=== PATIENT | male | born 1985 | race Caucasian/White ===

== ENCOUNTER → 2017-08-13 | Outpatient (CLI) | payer MEDICAID, SELFPAY | LOC: M ADAMS 13:49 | DX: M25.552 Pain in left hip (principal); M51.36 Other intervertebral disc degeneration, lumbar region | CPT/HCPCS: 72100 ==

== ENCOUNTER → 2017-08-26 | Outpatient (CLI) | payer SELFPAY | LOC: M RAD 16:51 | DX: M51.36 Other intervertebral disc degeneration, lumbar region (principal); M51.37 Other intervertebral disc degeneration, lumbosacral region; M51.26 Other intervertebral disc displacement, lumbar region | CPT/HCPCS: 72148 ==

== ENCOUNTER 2017-09-02 14:20 | Day surgery (SDC) | payer MEDICAID, SELFPAY ==
[2017-09-02] MEDS: LR 1,000 ML IV ×4 (14:42→19:15)
[2017-09-02] MEDS ORDERED: PROPOFOL 200 MG/20 ML VIAL As Ordered ×2 (15:40)
[2017-09-02] MEDS ORDERED: LIDOCAINE 2% INJ 100 MG/5 ML SDV (FOR ANES.) As Ordered ×2 (15:40)
[2017-09-02] MEDS ORDERED: ROCURONIUM BROMIDE 50 MG/5 ML VIAL As Ordered ×2 (15:40)
[2017-09-02] MEDS ORDERED: fentaNYL 250 MCG/5 ML INJECTION (J3010) As Ordered ×2 (15:40)
[2017-09-02] MEDS ORDERED: MIDAZOLAM INJ 2 MG/2 ML VIAL (J2250) As Ordered ×2 (15:41)
[2017-09-02] MEDS: BUPIVACAINE HCL 0.25% 10 ML VIAL As Ordered ×2 (16:04)
[2017-09-02] MEDS: BUPIVACAINE LIPOSOME/PF 1.3% 20 ML VIAL (13.3MG/ML)(EXPAREL) As Ordered ×2 (16:05)
[2017-09-02] MEDS ORDERED: PERCOCET 5MG/325MG TAB As Ordered ×2 (16:12)
[2017-09-02] MEDS ORDERED: ceFAZolin 2 GM/D5W 50 ML IV BAG (J0690 PER 500MG) As Ordered ×2 (16:25)
[2017-09-02] MEDS: PERCOCET 5MG/325MG TAB PO ×4 (16:30→22:51)
[2017-09-02] MEDS: CelecoXIB 400 MG CAP PO ×2 (16:35)
[2017-09-02] MEDS: LIDOCAINE W/EPINEPHRINE 1% 20ML VIAL As Ordered ×2 (17:04)
[2017-09-02] MEDS ORDERED: NEOSTIGMINE 10 MG/10 ML VIAL (J2710) As Ordered ×2 (17:50)
[2017-09-02] MEDS ORDERED: KETOROLAC 60 MG/2 ML VIAL (J1885) As Ordered ×2 (17:50)
[2017-09-02] MEDS ORDERED: ONDANSETRON 4MG/2ML VIAL (J2405) As Ordered ×2 (17:50)
[2017-09-02] MEDS ORDERED: dexameTHASONE 4 MG/ML 1ML VIAL (J1100) As Ordered ×2 (17:50)
[2017-09-02] MEDS ORDERED: GLYCOPYRROLATE INJ 0.2 MG/ML 2 ML VIAL As Ordered ×2 (17:51)
[2017-09-02] MEDS ORDERED: METOCLOPRAMIDE INJ 10MG/2ML VIAL (J2765) As Ordered ×2 (17:52)
[2017-09-02] MEDS ORDERED: HYDROmorphone HCL 2 MG/ML 1ML VIAL (J1170) As Ordered ×2 (17:55)
[2017-09-02] MEDS: THROMBIN SOLN 20,000 UNITS KIT As Ordered ×2 (18:29)
[2017-09-02] MEDS: BACITRACIN PWD 50,000 UNITS VIAL As Ordered ×2 (18:31)
[2017-09-02] MEDS ORDERED: fentaNYL 100 MCG/2 ML INJECTION (J3010) As Ordered ×2 (18:31)
[2017-09-02] MEDS ORDERED: fentaNYL 100 MCG/2 ML INJECTION (J3010) IV ×2 (19:15)
[2017-09-02] MEDS ORDERED: ONDANSETRON 4MG/2ML VIAL (J2405) IV ×2 (19:15)
[2017-09-02] MEDS ORDERED: HYDROmorphone HCL 1 MG/ML SYRINGE (J1170) IV ×4 (19:30)
[2017-09-02] MEDS ORDERED: D5W/LR 1,000 ML IV ×2 (19:30)
[2017-09-02] MEDS ORDERED: PROMETHAZINE INJ 25 MG/ML VIAL (J2550) IV ×2 (19:30)
[2017-09-03] MEDS: CelecoXIB (CeleBREX) 100 MG CAP PO ×2 (08:09)
[2017-09-03] MEDS: PERCOCET 5MG/325MG TAB PO ×2 (08:09)
== END 2017-09-03 10:20 | disposition home or self-care (01) ==
LOC: M SDC 09-03 10:20 → M MS5PR 20:00
DX: M51.17 Intervertebral disc disorders with radiculopathy, lumbosacral region (principal); M54.5 Low back pain; Z79.899 Other long term (current) drug therapy; Z72.0 Tobacco use
CPT/HCPCS: 63030

== ENCOUNTER 2023-05-08 13:54 | Emergency (ER) | payer BC, MEDICAID ==
[~2023-05-08] VITALS: Ht 182.9 cm; Wt 114.9 kg
[~2023-05-08 13:54] MED LIST: GABA-282 PO; HYDR-3713 PO; MELO15TA28 PO; METH4TAB8 PO
[2023-05-08] MEDS ORDERED: ONDANSETRON 4MG 2ML VIAL IV ONE (14:15)
[2023-05-08] MEDS ORDERED: NS 1,000 ML IV ONE (14:15)
[2023-05-08 14:40] LABS: BASO # 0.1 10^3/uL (0.0-0.2); BASO % 0.3 % (0.0-1.0); EOS # 0.1 10^3/uL (0.0-0.5); EOS % 0.6 % (0.0-3.0); HEMATOCRIT 49.4 % (42.0-52.0); HEMOGLOBIN 17.4 g/dl (13.5-17.5); LYMPH # 1.3 10^3/uL (1.5-5.0); LYMPH % 8.8 % (24.0-44.0); MEAN CORPUSCULAR HEMOGLOBIN 32.6 pg (27.0-33.0); MEAN CORPUSCULAR HGB CONC 35.2 g/dl (32.0-36.5); MEAN CORPUSCULAR VOLUME 92.7 fl (80.0-96.0); MONO # 0.5 10^3/uL (0.0-0.8); MONO % 3.2 % (2.0-8.0); NEUTROPHILS % 86.8 % (36.0-66.0); PLATELET COUNT, AUTOMATED 275 10^3/uL (150-450); RED BLOOD COUNT 5.33 10^6/uL (4.30-6.10); WHITE BLOOD COUNT 14.9 10^3/uL (4.0-10.0)
[2023-05-08] MEDS ORDERED: KETOROLAC 30 MG/ML 1ML VIAL IV ONE (14:40)
[2023-05-08 15:15] LABS: LIPASE 27 U/L (12-53)
[2023-05-08 15:18] LABS: ALBUMIN 4.5 G/DL (3.2-5.2); ALKALINE PHOSPHATASE 100 U/L (46-116); ALT/SGPT 53 U/L (7.0-40); AST/SGOT 29 U/L (<34); BILIRUBIN,DIRECT 0.6 MG/DL (<0.4); BILIRUBIN,TOTAL 1.9 MG/DL (0.3-1.2); BLOOD UREA NITROGEN 14 MG/DL (9-23); CALCIUM LEVEL 9.6 MG/DL (8.5-10.1); CARBON DIOXIDE LEVEL 27 MMOL/L (20-31); CHLORIDE LEVEL 105 MMOL/L (98-107); CREATININE FOR GFR 0.89 MG/DL (0.70-1.30); GLOMERULAR FILTRATION RATE > 60.0 (>60); GLUCOSE, FASTING 126 MG/DL (60-100); POTASSIUM SERUM 4.1 MMOL/L (3.5-5.1); SODIUM LEVEL 141 MMOL/L (136-145); TOTAL PROTEIN 7.8 G/DL (5.7-8.2)
[2023-05-08] MEDS ORDERED: ONDA4TAB6 PO (15:31)
[2023-05-08] MEDS ORDERED: KETO10TAB PO (15:32)
[2023-05-08 15:52] VITALS: BP 130/70; TEMP 96.9; O2SAT 97
== END 2023-05-08 16:14 | disposition home or self-care (01) ==
LOC: M ED 13:54
DX: K80.50 Calculus of bile duct without cholangitis or cholecystitis without obstruction (principal); Z87.891 Personal history of nicotine dependence; Z79.899 Other long term (current) drug therapy
CPT/HCPCS: 76705; 80048; 80076; 83690; 85025; 96361; 96374; 96375; 99283; J1885; J2405

== ENCOUNTER → 2023-06-14 | Outpatient (CLI) | payer BC ==
[~2023-06-14] MED LIST changes: +KETO10TAB PO; +ONDA4TAB6 PO
== END ==
LOC: M EKG 10:14
PROVIDERS: ATTEND Surgery
DX: K80.00 Calculus of gallbladder with acute cholecystitis without obstruction (principal)

== ENCOUNTER 2023-06-16 10:37 | Day surgery (SDC) | payer BC ==
[~2023-06-16] VITALS: Ht 182.9 cm; Wt 111.1 kg
[~2023-06-16 10:37] MED LIST changes: +CelecoXIB 400 MG CAP PO ONE; +INDOCYANINE GREEN 25MG VIAL (IC-GREEN) IV ONE; +LIDOCAINE 2% 100MG/5ML SDV (FOR ANES.) As Ordered ONE; +MIDAZOLAM INJ 2MG/2ML VIAL As Ordered ONE; +ONDANSETRON 4MG 2ML VIAL As Ordered ONE; +ROCURONIUM BROMIDE 50MG/5ML VIAL As Ordered ONE; +ceFAZolin SOD 2 GM in IV 1 EA IV ONE; +fentaNYL 100 MCG/2 ML INJECTION As Ordered ONE; +propofoL 200 MG/20 ML VIAL As Ordered ONE
[2023-06-16] MEDS ORDERED: INDOCYANINE GREEN 25MG VIAL (IC-GREEN) As Ordered ONE (11:09)
[2023-06-16] MEDS ORDERED: LIDOCAINE 1% SDV 30ML VIAL As Ordered ONE (11:09)
[2023-06-16] MEDS ORDERED: ACETAMINOPHEN 1000MG 100ML IV BAG As Ordered ONE (11:52)
[2023-06-16] MEDS ORDERED: fentaNYL 100 MCG/2 ML INJECTION As Ordered ONE (11:55)
[2023-06-16] MEDS ORDERED: KETOROLAC 60MG 2ML VIAL As Ordered ONE (11:55)
[2023-06-16] MEDS ORDERED: SUGAMMADEX SODIUM 500 MG/5 ML VIAL (BRIDION) As Ordered ONE (11:55)
[2023-06-16] MEDS ORDERED: ROCURONIUM BROMIDE 50MG/5ML VIAL As Ordered ONE (12:02)
[2023-06-16] MEDS ORDERED: HYDROmorphone HCL 2MG/ML 1ML VIAL As Ordered ONE (12:57)
[2023-06-16] MEDS ORDERED: LABETALOL 100MG/20ML VIAL As Ordered ONE (13:03)
[2023-06-16] MEDS ORDERED: LR 1,000 ML IV SCH (14:00)
[2023-06-16] MEDS ORDERED: oxyCODONE 5MG TAB PO PRN (14:00)
[2023-06-16] MEDS ORDERED: fentaNYL 100 MCG/2 ML INJECTION IV PRN (14:00)
[2023-06-16] MEDS ORDERED: ONDANSETRON 4MG 2ML VIAL IV PRN (14:00)
[2023-06-16] MEDS ORDERED: HYDROMORPHONE HCL 0.5 MG/ 0.5 ML SYRINGE IV PRN (14:00)
[2023-06-16 14:40] VITALS: BP 152/95; TEMP 97.6; O2SAT 97
== END 2023-06-16 15:05 | disposition home or self-care (01) ==
LOC: M SDC 10:37
PROVIDERS: ATTEND Surgery
DX: K80.00 Calculus of gallbladder with acute cholecystitis without obstruction (principal); Z87.891 Personal history of nicotine dependence
CPT/HCPCS: 47563; 88304; J0131; J0665; J0690; J1100; J1170; J1885; J1920; J2250; J2405; J3010; Q9968; S2900